=== PATIENT | male | born 1985 | race Caucasian/White ===

== ENCOUNTER 2018-03-30 07:10 | Inpatient (IN) | payer OTHER ==
[~2018-03-30] VITALS: Ht 172.7 cm; Wt 74.8 kg
[~2018-03-30 07:10] MED LIST changes: -LORazepam 2 MG/ML VIAL IM ONE; -MULT-1379 PO; -OLANZapine 10 MG VIAL IM ONLY ONE; -WATER STERILE 10 ML VIAL IM ONLY ONE; -diphenhydrAMINE 50 MG/ML VIAL IM ONE
[2018-03-30] MEDS ORDERED: MAG HYD/AL HYD/SIMETH 30ML UDC PO PRN (08:05)
[2018-03-30 14:30] VITALS: BP 100/65
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
[2018-03-31] MEDS ORDERED: MULTIVITAMINS TAB PO SCH (09:00)
[2018-03-31] MEDS ORDERED: NICOTINE INH SYSTEM 10 MG/INH INH PRN (11:20)
[2018-03-31] MEDS ORDERED: NICOTINE CARTRIDGE 1 EA PO PRN (11:20)
[2018-03-31] MEDS ORDERED: MULT-1379 PO (11:45)
[2018-03-31 14:55] VITALS: BP 123/87
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
== END 2018-03-31 15:45 | disposition home or self-care (01) | DRG 881 ==
LOC: BHS 07:10
PROVIDERS: ADMIT Psychiatry & Neurology Psychiatry; ATTEND Psychiatry & Neurology Psychiatry
DX: F43.21 Adjustment disorder with depressed mood (principal); R45.851 Suicidal ideations; F12.90 Cannabis use, unspecified, uncomplicated; Z62.810 Personal history of physical and sexual abuse in childhood; Z63.0 Problems in relationship with spouse or partner

== ENCOUNTER → 2018-03-30 | Emergency (ER) | payer OTHER ==
[~2018-03-30] MED LIST: ALBU8.5H IH; DULO30CA35 PO; LORazepam 2 MG/ML VIAL IM ONE; MULT-1379 PO; OLANZapine 10 MG VIAL IM ONLY ONE; WATER STERILE 10 ML VIAL IM ONLY ONE; diphenhydrAMINE 50 MG/ML VIAL IM ONE
--- NOTE | 2018-03-30 04:11 | ER Report ---
History and Physical Time Seen By : 04:11 HPI/ROS CHIEF COMPLAINT: emergency fpc HISTORY OF PRESENT ILLNESS: This is a 32 year old male. He was brought to the ER by the [place] [employer]. He was brought in because of suicidal statements. He and girlfriend got into an argument tonight. He left and sent text messages stating that he was going to kill himself. The police were called and they talked to him. He had been drinking a little bit and said that he was just mad and talking. They were able to leave at that time and felt he was safe , but they were called back to the residence later. He was banging on the door and said that if they did not come out that they would see him at his and he would kill himself. Based on the combination of events, they brought him in to the ER under emergency fpc for suicidal ideation and statements. He is adamant at this time that he is not suicidal. He says he has to work in the morning and will need to make money to support his 4 kids. He says that there is not enough Xanax available for him to take from his prescription to kill himself. He says he has a prescription for nightly Xanax. He denies any other problems. 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 He denies shortness of breath or chest pain. He has no abdominal pain or vomiting. He is requesting a cigarette, but does not want a nicotine patch because they make him sick. He says he has had several drinks tonight. He smokes marijuana, but denies other drugs. Allergies: Coded Allergies: No Known Drug Allergies (Unverified , 03/30/18) Home Meds Reported Medications Multivits,Th W-Fe,Other Min (THERA-M) 1 Each Tablet, 1 EACH PO QDAY 03/31/18 Albuterol Sulfate 90 Mcg/Act (PROAIR HFA 90 MCG/ACT) 8.5 Gm Hfa.aer.ad, 2 PUFF IH Q4H Y for SHORTNESS OF BREATH, INHALER 03/30/18 Duloxetine Hcl (CYMBALTA) 30 Mg Capsule., 90 MG PO QDAY, #5 CAP 03/30/18 Reviewed Nurses Notes: Yes Constitutional Vital Sign - Last 24 Hours 03/30/18 03/30/18 03/30/18 03/30/18 04:05 04:05 04:07 05:10 Temp 98.0 Pulse 87 87 101 104 Resp 16 B/P (MAP) 138/103 Pulse Ox 97 97 93 94 O2 Delivery Room Air 03/30/18 03/30/18 03/30/18 03/30/18 05:15 05:45 05:50 05:55 Pulse 98 96 98 B/P (MAP) 111/93 (99) Pulse Ox 95 94 92 03/30/18 03/30/18 03/30/18 03/30/18 06:10 06:25 06:30 06:45 Pulse 95 96 87 94 Pulse Ox 92 92 93 03/30/18 03/30/18 07:00 07:15 Pulse 90 89 Pulse Ox 92 91 Physical Exam General Appearance: The patient is alert, has no immediate need for airway protection and no current signs of toxicity. Eyes: Pupils equal and round, reactive to light, extraocular movements are intact, has some scleral injection. ENT: Normal oral mucosa. Moist mucous membranes. Tympanic membranes are normal. Neck: Neck is supple and non tender. Respiratory: Chest is non tender, lungs are clear to auscultation. Cardiac: regular rate and rhythm, normal cap refill and pulses in the wrists and ankles/feet. Gastrointestinal: Abdomen is soft and non tender, no masses, bowel sounds normal. Musculoskeletal: Extremities have full range of motion. He has some tenderness in both calf muscles, the left a little worse than the right. Skin: Has some abrasions on legs and arms, superficial only. DIFFERENTIAL DIAGNOSIS: After history and physical exam differential diagnosis was considered for suicidal ideation, intoxication with alcohol and possibly marijuana. Medical Decision Making Data Points Result Diagram: 03/30/18 0501 03/30/18 0501 Laboratory Hematology Test 03/30/18 05:01 03/30/18 05:50 Red Blood Count 5.02 M/uL (4.00-5.60) Mean Corpuscular Volume 90.5 fL (80.0-96.0) Mean Corpuscular Hemoglobin 32.2 pg (26.0-33.0) Mean Corpuscular Hemoglobin Concent 35.6 g/dL (32.0-36.0) Red Cell Distribution Width 15.9 % (11.5-14.5) Mean Platelet Volume 8.7 fL (7.2-11.1) Neutrophils (%) (Auto) 69.9 % (39.4-72.5) Lymphocytes (%) (Auto) 14.8 % (17.6-49.6) Monocytes (%) (Auto) 6.3 % (4.1-12.4) Eosinophils (%) (Auto) 8.7 % (0.4-6.7) Basophils (%) (Auto) 0.3 % (0.3-1.4) Nucleated RBC Relative Count (auto) 0.0 /100WBC Neutrophils # (Auto) 5.2 K/uL (2.0-7.4) Lymphocytes # (Auto) 1.1 K/uL (1.3-3.6) Monocytes # (Auto) 0.5 K/uL (0.3-1.0) Eosinophils # (Auto) 0.7 K/uL (0.0-0.5) Basophils # (Auto) 0.0 K/uL (0.0-0.1) Nucleated RBC Absolute Count (auto) 0.00 K/uL Sodium Level 138 mmol/L (137-145) Potassium Level 3.4 mmol/L (3.5-5.0) Chloride Level 106 mmol/L (98-107) Carbon Dioxide Level 20 mmol/L (22-30) Blood Urea Nitrogen 7 mg/dl (9-21) Creatinine 0.80 mg/dl (0.66-1.25) Glomerular Filtration Rate Calc > 60.0 Random Glucose 144 mg/dl (75-110) Calcium Level 9.1 mg/dl (8.4-10.2) Magnesium Level 2.0 mg/dl (1.7-2.2) Total Bilirubin 0.5 mg/dl (0.2-1.3) Aspartate Amino Transf (AST/SGOT) 24 U/L (0-35) Alanine Aminotransferase (ALT/SGPT) 30 U/L (0-56) Alkaline Phosphatase 69 U/L (0-126) Total Protein 7.5 g/dl (6.3-8.2) Albumin 4.5 g/dl (3.5-5.0) Thyroid Stimulating Hormone (TSH) 3.45 uIU/ml (0.46-4.68) Salicylates Level < 10 mg/L Salicylate Last Dose Date unk Acetaminophen Level < 10 ug/ml Serum Alcohol 10 mg/dl Urine Color Straw Urine Clarity Clear Urine pH 6.0 pH (4.8-9.5) Urine Specific [place] 1.002 Urine Protein Negative mg/dL (NEGATIVE) Urine Glucose (UA) Negative mg/dL (NEGATIVE) Urine Ketones Negative mg/dL (NEGATIVE) Urine Blood Negative (NEGATIVE) Urine Nitrite Negative (NEGATIVE) Urine Bilirubin Negative (NEGATIVE) Urine Urobilinogen Negative mg/dL (0.2-1.9) Urine Leukocyte Esterase Negative (NEGATIVE) Urine RBC None /HPF (0-2/HPF) Urine WBC <1 /HPF (0-5/HPF) Urine Squamous Epithelial Cells None /LPF (NONE-FEW) Urine Bacteria Negative /HPF (NONE-FEW) Urine Mucus None /HPF (NONE-FEW) Urine Opiates Screen Negative Urine Barbiturates Screen Negative Ur Tricyclic Antidepressants Screen Negative Urine Phencyclidine Screen Negative Urine Amphetamines Screen Negative Urine Benzodiazepines Screen Positive Urine Cocaine Screen Negative Urine Cannabinoids Screen Positive Chemistry Test 03/30/18 05:01 03/30/18 05:50 White Blood Count 7.4 k/uL (4.5-11.0) Red Blood Count 5.02 M/uL (4.00-5.60) Hemoglobin 16.2 g/dL (14.0-18.0) Hematocrit 45.4 % (42.0-52.0) Mean Corpuscular Volume 90.5 fL (80.0-96.0) Mean Corpuscular Hemoglobin 32.2 pg (26.0-33.0) Mean Corpuscular Hemoglobin Concent 35.6 g/dL (32.0-36.0) Red Cell Distribution Width 15.9 % (11.5-14.5) Platelet Count 296 K/uL (150-450) Mean Platelet Volume 8.7 fL (7.2-11.1) Neutrophils (%) (Auto) 69.9 % (39.4-72.5) Lymphocytes (%) (Auto) 14.8 % (17.6-49.6) Monocytes (%) (Auto) 6.3 % (4.1-12.4) Eosinophils (%) (Auto) 8.7 % (0.4-6.7) Basophils (%) (Auto) 0.3 % (0.3-1.4) Nucleated RBC Relative Count (auto) 0.0 /100WBC Neutrophils # (Auto) 5.2 K/uL (2.0-7.4) Lymphocytes # (Auto) 1.1 K/uL (1.3-3.6) Monocytes # (Auto) 0.5 K/uL (0.3-1.0) Eosinophils # (Auto) 0.7 K/uL (0.0-0.5) Basophils # (Auto) 0.0 K/uL (0.0-0.1) Nucleated RBC Absolute Count (auto) 0.00 K/uL Glomerular Filtration Rate Calc > 60.0 Calcium Level 9.1 mg/dl (8.4-10.2) Magnesium Level 2.0 mg/dl (1.7-2.2) Total Bilirubin 0.5 mg/dl (0.2-1.3) Aspartate Amino Transf (AST/SGOT) 24 U/L (0-35) Alanine Aminotransferase (ALT/SGPT) 30 U/L (0-56) Alkaline Phosphatase 69 U/L (0-126) Total Protein 7.5 g/dl (6.3-8.2) Albumin 4.5 g/dl (3.5-5.0) Thyroid Stimulating Hormone (TSH) 3.45 uIU/ml (0.46-4.68) Salicylates Level < 10 mg/L Salicylate Last Dose Date unk Acetaminophen Level < 10 ug/ml Serum Alcohol 10 mg/dl Urine Color Straw Urine Clarity Clear Urine pH 6.0 pH (4.8-9.5) Urine Specific [place] 1.002 Urine Protein Negative mg/dL (NEGATIVE) Urine Glucose (UA) Negative mg/dL (NEGATIVE) Urine Ketones Negative mg/dL (NEGATIVE) Urine Blood Negative (NEGATIVE) Urine Nitrite Negative (NEGATIVE) Urine Bilirubin Negative (NEGATIVE) Urine Urobilinogen Negative mg/dL (0.2-1.9) Urine Leukocyte Esterase Negative (NEGATIVE) Urine RBC None /HPF (0-2/HPF) Urine WBC <1 /HPF (0-5/HPF) Urine Squamous Epithelial Cells None /LPF (NONE-FEW) Urine Bacteria Negative /HPF (NONE-FEW) Urine Mucus None /HPF (NONE-FEW) Urine Opiates Screen Negative Urine Barbiturates Screen Negative Ur Tricyclic Antidepressants Screen Negative Urine Phencyclidine Screen Negative Urine Amphetamines Screen Negative Urine Benzodiazepines Screen Positive Urine Cocaine Screen Negative Urine Cannabinoids Screen Positive Toxicology Test 03/30/18 05:01 03/30/18 05:50 Salicylates Level < 10 mg/L Salicylate Last Dose Date unk Acetaminophen Level < 10 ug/ml Serum Alcohol 10 mg/dl Urine Opiates Screen Negative Urine Barbiturates Screen Negative Ur Tricyclic Antidepressants Screen Negative Urine Phencyclidine Screen Negative Urine Amphetamines Screen Negative Urine Benzodiazepines Screen Positive Urine Cocaine Screen Negative Urine Cannabinoids Screen Positive Urinalysis Test 03/30/18 05:50 Urine Color Straw Urine Clarity Clear Urine pH 6.0 pH (4.8-9.5) Urine Specific [place] 1.002 Urine Protein Negative mg/dL (NEGATIVE) Urine Glucose (UA) Negative mg/dL (NEGATIVE) Urine Ketones Negative mg/dL (NEGATIVE) Urine Blood Negative (NEGATIVE) Urine Nitrite Negative (NEGATIVE) Urine Bilirubin Negative (NEGATIVE) Urine Urobilinogen Negative mg/dL (0.2-1.9) Urine Leukocyte Esterase Negative (NEGATIVE) Urine RBC None /HPF (0-2/HPF) Urine WBC <1 /HPF (0-5/HPF) Urine Squamous Epithelial Cells None /LPF (NONE-FEW) Urine Bacteria Negative /HPF (NONE-FEW) Urine Mucus None /HPF (NONE-FEW) ED Course/Re-evaluation ED Course Overall, the patient has been cooperative with me, but you can tell he is agitated at the process. He is begging me to let him go home so he does not miss work or lose his job. Based on the situation, I cannot do that. We talked about that and he asked me if he could get some Xanax or something to keep him calm. He feels like he might get upset enough that he could lose control and cause problems. I talked to him about this and suggested using some sedative injections that would help keep him calm and perhaps put him to sleep so that he would be calm and keep himself and staff here safe from him getting out of control. He felt like that would be for the best so we went ahead and used Ativan 2mg IM, Benadryl 50mg IM and Zyprexa 10mg IM. Summit this course would be the best for safety and avoiding problems this morning. We explained the medications and the patient let the nurses give him the injections. He did not want blood drawn until he was more calm or asleep as he is feeling like he might freak out with these things. Decision to Disposition Date: Mar 30, 2018 Decision to Disposition Time: 04:52 Depart Departure Latest Vital Signs Vital Signs Date Time Temp Pulse Resp B/P (MAP) Pulse Ox O2 Delivery O2 Flow Rate FiO2 03/30/18 07:15 89 91 03/30/18 05:45 111/93 (99) 03/30/18 04:07 98.0 16 Room Air Impression: Primary Impression: Suicidal ideation Condition: Condition Unchanged Disposition: XFER TO [facility] PILLO STOLL MD Mar 30, 2018 04:11
--- NOTE | 2018-03-30 04:49 | BHS - Psychiatric Evaluation ---
ER - Title 25 MHE Evaluation Title 25 Evaluation Patient Detained By: Law Enforcement Referral Source: Law enforcement and patient information. Family information via [employer] Date Patient Detained: Mar 30, 2018 Time Patient Detained: 04:00 Date Long-Term Expires: Apr 04, 2018 Time Long-Term Expires: 04:00 Legal Status: Police Hold: No Legal Status: Residence: [facility] Assessment Data Provided By: Patient, Law Enforcement HPI/ROS: CHIEF COMPLAINT: emergency nursing home HISTORY OF PRESENT ILLNESS: This is a 32 year old male. He was brought to the ER by the [place] [employer]. He was brought in because of suicidal statements. He and girlfriend got into an argument tonight. He left and sent text messages stating that he was going to kill himself. The police were called and they talked to him. He had been drinking a little bit and said that he was just mad and talking. They were able to leave at that time and felt he was safe, but they were called back to the residence later. He was banging on the door and said that if they did not come out that they would see him at his and he would kill himself. Based on the combination of events, they brought him in to the ER under emergency nursing home for suicidal ideation and statements. He is adamant at this time that he is not suicidal. He says he has to work in the morning and will need to make money to support his 4 kids. He says that there is not enough Xanax available for him to take from his prescription to kill himself. He says he has a prescription for nightly Xanax. He denies any other problems. 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 He denies shortness of breath or chest pain. He has no abdominal pain or vomiting. He is requesting a cigarette, but does not want a nicotine patch because they make him sick. He says he has had several drinks tonight. He smokes marijuana, but denies other drugs. Admit due to SI or Attempt: No Suicide Plan: No Plan Alcohol or Drugs Involved: Yes Current Intoxication Info: alcohol and marijuana Is Patient Info Reliable: No Is Collateral Info Reliable: Yes Current Home Psych Meds: Has a prescription for Xanax, for anxiety Mental Status Exam General Appearance: Unkept Speech: Slurred, Rambling Mood: Dysthmic/Depressed Affect: Anxious, Agitated (Swings between the two) Thought Process: Goal Directed Thought Content: No Suicidal Ideation, No Homicidal Ideation, No Auditory Halllucinations, No Visual Hallucinations Sensorium: Other (appears intoxicated) Cognition: Alert & Oriented-Person, Alert & Oriented-Place, Alert & Oriented- Time, Eyxev-Ghypozvc-Jwdwwbyve Memory: Other (normal) Insight Judgment: Poor Hallucinations: Denies Delusions: Denies Current Risk & History Current Dangerous Risk Assessm: Agitation this Encounter Past Dangerous Risk Assessm: Other (No known past dangerous risk behaviors) Previous Suicide Attempt: No Previous Attempt Previous Psychiatric Illness: Yes Previous Diagnosis/Treatment: Anxiety as noted above. Previous Psychiatric Treatment: No Previous Treatment Description None known or admitted to Risk Assessment & Disposition Evaluated Risk Assessment: The patient has had two episodes tonight with the police coming a second time and again threatening suicide. Based on this I am upholding the nursing home. The patient has been cooperative and calm for the most part, but is getting agitated. He is requesting medication to help calm him because he feels like he might get too riled up. To protect the patient from this as well as protect the staff, I offered to provide medications to sedate him this morning. I explained that we would give these as IM injections. He feels like this will be for the best so that he does not cause a problem and keep everyone safe. Impression: Primary Impression: Suicidal ideation Meets Mental Illness Req.: Yes Meets Dangerousness Req.: Yes Emergency Long-Term to be: Upheld Date of Decision: Mar 30, 2018 Time of Decision: 04:48 Patient is Medically Stable at: Yes Disposition: PILLO SANTIAGO MD Mar 30, 2018 04:49
[2018-03-30 05:13] LABS: PLATELET COUNT, AUTOMATED 296 K/uL (150-450)
[2018-03-30 05:45] VITALS: BP 111/93
== END ==
LOC: ER 04:12
DX: R45.851 Suicidal ideations (principal)
CPT/HCPCS: 36415; 80305; 80320; 80329; 81001; 83735; 84443; 85025; 96372; 99284; A4216; J1200; J2060; J3490; 82040; 82247; 82310; 82374; 82435; 82565; 82947; 84075; 84132; 84155; 84295; 84450; 84460; 84520

== ENCOUNTER 2018-04-05 18:45 | Emergency (ER) | payer MEDICAID, OTHER ==
[~2018-04-05 18:45] MED LIST changes: +MULT-1379 PO
--- NOTE | 2018-04-05 18:53 | ER Report ---
History and Physical Time Seen By MD: 18:52 HPI/ROS CHIEF COMPLAINT: Right lower extremity pain, swelling after falling HISTORY OF PRESENT ILLNESS: Patient is a 32-year-old male here with complaints of right lower extremity pain, ecchymosis after falling down steps several days ago. Patient reports that he has been taking ibuprofen excessively and has noticed increased bruising of the right lower extremity with increased pain. He also has mild numbness and paresthesias just distal to his right knee in the posterior aspect. Patient is afebrile, denies chest pain, shortness breath, nausea, vomiting, fevers or chills. He is neurovascularly intact in the distal extremity. REVIEW OF SYSTEMS: Constitutional: No fever, no chills. Eyes: No discharge. ENT: No sore throat. Cardiovascular: No chest pain, no palpitations. Respiratory: No cough, no shortness of breath. Gastrointestinal: No abdominal pain, no vomiting. Genitourinary: No hematuria. Musculoskeletal: + RLE pain from knee to foot with ecchymosis Skin: + ecchymosis of the RLE Neurological: No headache. Allergies: Coded Allergies: No Known Drug Allergies (Unverified , 03/30/18) Home Meds Active Scripts Tramadol Hcl (TRAMADOL HCL) 50 Mg Tablet, 50 MG PO Q6H Y for PAIN, #12 TAB 0 Refills Prov:ALEKS BOX DO 04/05/18 Reported Medications Multivits,Th W-Fe,Other Min (THERA-M) 1 Each Tablet, 1 EACH PO QDAY 03/31/18 Albuterol Sulfate 90 Mcg/Act (PROAIR HFA 90 MCG/ACT) 8.5 Gm Hfa.aer.ad, 2 PUFF IH Q4H Y for SHORTNESS OF BREATH, INHALER 03/30/18 Duloxetine Hcl (CYMBALTA) 30 Mg Capsule.dr, 90 MG PO QDAY, #5 CAP 03/30/18 Hx Smoking: Yes Smoking Status: Current: Every Day Smoker, Heavy Tobacco Smoker Hx Alcohol Use: Yes Constitutional Vital Sign - Last 24 Hours 04/05/18 04/05/18 04/05/18 04/05/18 18:48 18:52 18:55 19:00 Temp 99.3 Pulse 85 81 Resp 16 B/P (MAP) 122/86 (98) 122/86 113/83 (93) 114/95 (101) Pulse Ox 95 94 O2 Delivery Room Air 04/05/18 04/05/18 19:15 19:30 Pulse 82 72 B/P (MAP) 118/76 (90) Pulse Ox 96 93 Physical Exam General Appearance: The patient is alert, has no immediate need for airway protection and no signs of toxicity. Mild distress secondary to pain Neurological: Neurovascular exam is intact in the distal extremity Skin: Ecchymosis of the right lower extremity from the knee to the foot Musculoskeletal: Neck is supple non tender. Right lower extremity tender to palpation from the knee to the foot. DIFFERENTIAL DIAGNOSIS: After history and physical exam differential diagnosis was considered for fracture, contusion, abrasion, sprain Medical Decision Making EKG/Imaging Imaging Location: [facility] Patient: Jackson Houston : 1985 Visit/Account:[id number] Date of : 04/05/2018 Technique: ANKLE 2 VIEW RIGHT HISTORY: fall Comparison studies: None FINDINGS: There is no acute fracture. The ankle mortise is maintained. Soft tissue swelling overlies the ankle. IMPRESSION: 1. No acute osseous process. Location: [facility] Patient: Jackson Houston : 1985 Visit/Account:[id number] Date of Sev: 04/05/2018 Technique: FOOT 2 VIEW RIGHT HISTORY: fall Comparison studies: None FINDINGS: A a linear lucency is noted at the base of the right fifth metatarsal ; this does not appear to extend to the cortex. The alignment of the right foot is maintained. No significant soft tissue swelling. IMPRESSION: 1. Linear lucency at the base of the right fifth metatarsal which does not extend to the cortex and is likely projectional; however, oblique radiographs would further assess. Location: [facility] Patient: Jackson Houston : 1985 Visit/Account:[id number] Date of : 04/05/2018 Technique: KNEE 3 VIEW RIGHT HISTORY: fall Comparison studies: None FINDINGS: There is no acute fracture. The alignment of the right knee is maintained. No knee joint effusion. IMPRESSION: 1. No acute osseous process. Location: [facility] Patient: Jackson Houston : 1985 Visit/Account:[id number] Date of Sevice: 04/05/2018 Technique: TIBIA FIBULA RIGHT HISTORY: fall Comparison studies: None FINDINGS: There is no acute fracture. The alignment of the right tibia and fibula are maintained. No radiodense foreign body. IMPRESSION: 1. No acute osseous process. ED Course/Re-evaluation ED Course Patient is a 32-year-old male here status post fall several days ago here with complaints of right lower extremity pain, swelling, ecchymosis from the knee to the foot. On physical exam it appears that the patient has developed a hematoma of the posterior right leg distal to the knee. He reports taking excessive amounts of Advil for analgesia without significant relief of symptoms. X-rays of the knee, tib-fib, ankle and foot showed no acute fractures. The extremity was wrapped in Alexey wraps for comfort and since he had a hematoma present. Patient was given 2 days off work for rest and recovery. He was given take home tramadol and a prescription for backup tramadol for pain control and advised not to take Advil as this may worsen his symptoms and bleeding. Patient was stable for discharge and able to ambulate without issue. Decision to Disposition Date: Apr 05, 2018 Decision to Disposition Time: 19:59 Depart Departure Latest Vital Signs Vital Signs Date Time Temp Pulse Resp B/P (MAP) Pulse Ox O2 Delivery O2 Flow Rate FiO2 04/05/18 19:30 72 118/76 (90) 93 04/05/18 18:52 99.3 16 Room Air Impression: Primary Impression: Extremity pain Additional Impressions: Fall Contusion Condition: Condition Unchanged Disposition: HOME OR SELF-CARE New Scripts Tramadol Hcl (TRAMADOL HCL) 50 Mg Tablet 50 MG PO Q6H Y for PAIN, #12 TAB 0 Refills Prov: ALEKS BOX DO 04/05/18 Departure Forms: ER Transition Record, Medications Reconciliation, Off Work/ School Form, School or Work Release?: Work Number of days to be released: 2 Patient Portal Information Patient Instructions: Hematoma (ED) Additional Instructions: Please read. Leg in Alexey bandages for comfort. Rest, elevate, ice and take pain medications as needed for relief. Please follow-up with your family doctor in the next 3 days for follow-up care. Problem Qualifiers ALEKS BOX DO Apr 05, 2018 18:53
[2018-04-05 19:30] VITALS: BP 118/76
--- NOTE | 2018-04-05 19:42 | RADIOLOGY IMAGING REPORT ---
FACILITY: [facility] PATIENT NAME: Jackson Houston : 1985 MR: [id number] V: [id number] EXAM DATE: ORDERING PHYSICIAN: ALEKS BOX TECHNOLOGIST: Location: [facility] Patient: Jackson Houston : 1985 Visit/Account:[id number] Date of Sevice: 04/05/2018 Technique: KNEE 3 VIEW RIGHT HISTORY: fall Comparison studies: None FINDINGS: There is no acute fracture. The alignment of the right knee is maintained. No knee joint ef fusion. IMPRESSION: 1. No acute osseous process. Report Dictated By: Eliel Barahona DO at 04/05/2018 7:31 PM Report E-Signed By: Eliel Barahona DO at 04/05/2018 7:38 PM WSN:[id number]
--- NOTE | 2018-04-05 19:43 | RADIOLOGY IMAGING REPORT ---
FACILITY: [facility] PATIENT NAME: Jackson Houston : 1985 MR: [id number] V: [id number] EXAM DATE: ORDERING PHYSICIAN: ALEKS BOX TECHNOLOGIST: Location: [facility] Patient: Jackson Houston : 1985 Visit/Account:[id number] Date of Sevice: 04/05/2018 Technique: TIBIA FIBULA RIGHT HISTORY: fall Comparison studies: None FINDINGS: There is no acute fracture. The alignment of the right tibia and fibula are maintained. No radiodense foreign body. IMPRESSION: 1. No acute osseous process. Report Dictated By: Eliel Barahona DO at 04/05/2018 7:38 PM Report E-Signed By: Eliel Barahona DO at 04/05/2018 7:40 PM WSN:[id number]
--- NOTE | 2018-04-05 19:46 | RADIOLOGY IMAGING REPORT ---
FACILITY: [facility] PATIENT NAME: Jackson Houston : 1985 MR: [id number] V: [id number] EXAM DATE: ORDERING PHYSICIAN: ALEKS BOX TECHNOLOGIST: Location: [facility] Patient: Jackson Houston : 1985 Visit/Account:[id number] Date of Sevice: 04/05/2018 Technique: ANKLE 2 VIEW RIGHT HISTORY: fall Comparison studies: None FINDINGS: There is no acute fracture. The ankle mortise is maintained. Soft tissue swelling overlies the ankle. IMPRESSION: 1. No acute osseous process. Report Dictated By: Eliel Barahona DO at 04/05/2018 7:40 PM Report E-Signed By: Eliel Barahona DO at 04/05/2018 7:42 PM WSN:[id number]
--- NOTE | 2018-04-05 19:54 | RADIOLOGY IMAGING REPORT ---
FACILITY: [facility] PATIENT NAME: Jackson Houston : 1985 MR: [id number] V: [id number] EXAM DATE: ORDERING PHYSICIAN: ALEKS BOX TECHNOLOGIST: Location: [facility] Patient: Jackson Houston : 1985 Visit/Account:[id number] Date of Sevice: 04/05/2018 Technique: FOOT 2 VIEW RIGHT HISTORY: fall Comparison studies: None FINDINGS: A a linear lucency is noted at the base of the right fifth metatarsal; this does not appear to extend to the cortex. The alignment of the right foot is maintained. No significant soft tissue s welling. IMPRESSION: 1. Linear lucency at the base of the right fifth metatarsal which does not extend to the cortex and is likely projectional; however, oblique radiographs would further assess. Report Dictated By: Eliel Barahona DO at 04/05/2018 7:45 PM Report E-Signed By: Eliel Barahona DO at 04/05/2018 7:51 PM WSN:[id number]
[2018-04-05] MEDS ORDERED: TRAM-420 PO (19:57)
[2018-04-05] MEDS ORDERED: traMADol 50 MG TAB TH 2 TAB/BOTTLE PO ONE (20:00)
== END 2018-04-05 20:15 | disposition home or self-care (01) ==
LOC: ER 19:04
DX: S80.11XA Contusion of right lower leg, initial encounter (principal); M79.661 Pain in right lower leg; F17.200 Nicotine dependence, unspecified, uncomplicated; W10.9XXA Fall (on) (from) unspecified stairs and steps, initial encounter; Z79.899 Other long term (current) drug therapy
CPT/HCPCS: 73562; 73590; 73600; 73620; 99284; C9399

== ENCOUNTER 2018-04-11 22:48 | Emergency (ER) | payer MEDICAID ==
[~2018-04-11 22:48] MED LIST changes: +TRAM-420 PO
[2018-04-11 23:00] VITALS: BP 123/90
--- NOTE | 2018-04-11 23:03 | ER Report ---
History and Physical Time Seen By MD: 23:03 HPI/ROS CHIEF COMPLAINT: Hematoma pain,? Infection HISTORY OF PRESENT ILLNESS: 32-year-old male presents ambulatory to the ER complaining of increasing pain and swelling in his right upper lateral calf muscle. Patient was seen here a week or so ago after falling down some stairs. He has a large hematoma in the upper aspect of his calf muscle. There is an open wound there from an abrasion. It appears he's been picking at it. It is somewhat erythematous. His is concerned it's getting infected. He notes 6 /10 pain aggravated by palpation and movement. He notes no purulent drainage. He's had no systemic fever, chills or body aches. There is old appearing ecchymosis extending down his leg. Allergies: Coded Allergies: No Known Drug Allergies (Unverified , 03/30/18) Home Meds Active Scripts Cephalexin Monohydrate (CEPHALEXIN) 500 Mg Cap, 500 MG PO TID, #30 CAP TAKE 1 CAPSULE BY MOUTH tid Prov:MARCELLA CASTELLANOS DO 04/11/18 Reported Medications Multivits,Th W-Fe,Other Min (THERA-M) 1 Each Tablet, 1 EACH PO QDAY 03/31/18 Albuterol Sulfate 90 Mcg/Act (PROAIR HFA 90 MCG/ACT) 8.5 Gm Hfa.aer.ad, 2 PUFF IH Q4H Y for SHORTNESS OF BREATH, INHALER 03/30/18 Duloxetine Hcl (CYMBALTA) 30 Mg Capsule.dr, 60 MG PO QDAY, #5 CAP 03/30/18 Discontinued Scripts Tramadol Hcl (TRAMADOL HCL) 50 Mg Tablet, 50 MG PO Q6H Y for PAIN, #12 TAB 0 Refills Prov:ALEKS BOX DO 04/05/18 Reviewed Nurses Notes: Yes Old Medical Records Reviewed: Yes Hx Smoking: Yes Smoking Status: Current: Every Day Smoker, Heavy Tobacco Smoker Hx Substance Use Disorder: No Hx Alcohol Use: Yes Constitutional Vital Sign - Last 24 Hours 04/11/18 23:00 Temp 99.3 Pulse 81 Resp 16 B/P (MAP) 123/90 Pulse Ox 95 O2 Delivery Room Air Physical Exam General appearance: Alert no distress. Respiratory: Chest is non tender, lungs are clear to auscultation. Cardiac: Regular rate and rhythm Extremities: Examination of the right lower extremity reveals a large hematoma in the upper lateral aspect of the calf muscle. There is a approximately 8 mm wound with some surrounding erythema. Is not warm to touch. It is not fluctuant. The hematoma extends approximately 10 cm in diameter. There is no calf tenderness. There is no Homans sign. The foot is neurovascularly intact. DIFFERENTIAL DIAGNOSIS: After history and physical exam differential diagnosis was considered for hematoma, abscess, cellulitis, open wound, DVT, contusion, knee sprain Medical Decision Making ED Course/Re-evaluation ED Course Patient was minute to an examination room. H&P was done. The dental diagnoses was considered. Patient with some suggestions of infection. He'll be covered with Keflex. He is advised to treat a hematoma with heat to help resorption. He is advised to wear compressive wrap. Patient's advised to follow-up with primary care if unimproved in 3-5 days. Decision to Disposition Date: Apr 11, 2018 Decision to Disposition Time: 23:13 Depart Departure Latest Vital Signs Vital Signs Date Time Temp Pulse Resp B/P (MAP) Pulse Ox O2 Delivery O2 Flow Rate FiO2 04/11/18 23:00 99.3 81 16 123/90 95 Room Air Impression: Primary Impression: Hematoma of right lower extremity Additional Impressions: Open wound of right lower leg Cellulitis of right leg Condition: Improved Disposition: HOME OR SELF-CARE Referrals: JOANIE ALONSO MD, FARRUKH MD New Scripts Cephalexin Monohydrate (CEPHALEXIN) 500 Mg Cap 500 MG PO TID, #30 CAP TAKE 1 CAPSULE BY MOUTH tid Prov: MARCELLA CASTELLANOS DO 04/11/18 Patient Instructions: Cellulitis (ED), Hematoma (ED) Additional Instructions: Apply a heating pad or warm compresses to the affected area Gently massage the area Wear compressive Alexey wrap in the affected area Gently cleanse the wound once a day and apply a large Band-Aid and antibiotic ointment Follow-up with your primary care if unimproved in 3-5 days Problem Qualifiers Primary Impression: Hematoma of right lower extremity Encounter type: initial encounter Qualified Codes: S80.11XA - Contusion of right lower leg, initial encounter Additional Impressions: Open wound of right lower leg Encounter type: initial encounter Qualified Codes: S81.801A - Unspecified open wound, right lower leg, initial encounter MARCELLA CASTELLANOS DO Apr 11, 2018 23:03
[2018-04-11] MEDS ORDERED: CEPH500C24 PO (23:15)
[2018-04-11] MEDS ORDERED: CEPHALEXIN MONO 500 MG CAP PO ONE (23:20)
== END 2018-04-11 23:27 | disposition home or self-care (01) ==
LOC: ER 23:09
DX: S80.11XA Contusion of right lower leg, initial encounter (principal); S81.801A Unspecified open wound, right lower leg, initial encounter; L03.115 Cellulitis of right lower limb
CPT/HCPCS: 99283

== ENCOUNTER 2018-04-25 00:02 | Emergency (ER) | payer MEDICAID ==
[~2018-04-25 00:02] MED LIST changes: +CEPH500C24 PO
--- NOTE | 2018-04-25 00:10 | ER Report ---
History and Physical Time Seen By MD: 00:10 Hx. of Stated Complaint: HEMATOMA ON PATIENTS RIGHT CALF "EXPLODED" TONIGHT ABOUT 1/2HOUR AGO. PATIENT STATES FEELING A LIGHT HEADED AND NAUSEATED. 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 HPI/ROS CHIEF COMPLAINT: leg bleeding HISTORY OF PRESENT ILLNESS: This is a 32 year old male. He has a history of a right upper calf traumatic hematoma from a fall a few weeks ago. Had been prescribed antibiotics about 10 days ago for cellulitis over abrasion in the same area. He did not get the antibiotics. He has been having increasing pain in the calf and tonight it suddenly ruptured, scattering blood, clots and foul smelling liquid. The area is still painful, but less painful now. No fevers or chills. Has some nausea, but no vomiting. Normal sensation in the leg. Hurts to move the calf and foot, but can do so without weakness. Feels a little lightheaded. Allergies: Coded Allergies: No Known Drug Allergies (Unverified , 03/30/18) Home Meds Active Scripts Oxycodone Hcl/Acetaminophen (PERCOCET 5-325 MG TABLET) 1 Each Tablet, 1 EACH PO Q4H PRN for PAIN, #12 TAB 0 Refills Prov:PILLO STOLL MD 04/25/18 Sulfamethoxazole/Trimet 800-160 Mg Tab (BACTRIM DS TABLET) 1 Each Tablet, 1 TAB PO Q12H, #20 TAB 0 Refills Prov:PILLO STOLL MD 04/25/18 Reported Medications Multivits,Th W-Fe,Other Min (THERA-M) 1 Each Tablet, 1 EACH PO QDAY 03/31/18 Albuterol Sulfate 90 Mcg/Act (PROAIR HFA 90 MCG/ACT) 8.5 Gm Hfa.aer.ad, 2 PUFF IH Q4H PRN for SHORTNESS OF BREATH, INHALER 03/30/18 Duloxetine Hcl (CYMBALTA) 30 Mg Capsule.dr, 60 MG PO QDAY, #5 CAP 03/30/18 Discontinued Scripts Cephalexin Monohydrate (CEPHALEXIN) 500 Mg Cap, 500 MG PO TID, #30 CAP TAKE 1 CAPSULE BY MOUTH tid Prov:MARCELLA CASTELLANOS DO 04/11/18 Reviewed Nurses Notes: Yes Hx Smoking: Yes Smoking Status: Current: Every Day Smoker, Heavy Tobacco Smoker Hx Substance Use Disorder: No Hx Alcohol Use: Yes Constitutional Vital Sign - Last 24 Hours 04/25/18 04/25/18 04/25/18 04/25/18 00:06 01:02 01:07 01:22 Temp 98.3 Pulse 76 71 63 72 Resp 20 B/P (MAP) 110/78 Pulse Ox 95 95 95 96 O2 Delivery Room Air 04/25/18 01:36 B/P (MAP) 99/73 (82) Physical Exam General Appearance: The patient is alert. Mild distress due to pain. Respiratory: Breathing easily. Clear to auscultation. Cardiac: Regular rate and rhythm. Normal capillary refill and pulses in the right leg. Musculoskeletal: Pain over the wound, normal motor function. Skin: Exit wound from the hematoma which appears to have been infected. Wound measures about 1cm in diameter. Probing with cotton tipped swab shows underlying cavity about 2cm deep and about 6cm in diameter. Painful. Some clotted blood coming out. No active bleeding. Appears to have had purulent material expelled and still a little in the cavity. DIFFERENTIAL DIAGNOSIS: After history and physical exam differential diagnosis was considered for traumatic hematoma that got infected and spontaneously drain ed tonight. Medical Decision Making Data Points Result Diagram: 04/25/18 00304/25/18 003 Laboratory Hematology Test 04/25/18 00:37 Red Blood Count 4.72 M/uL (4.00-5.60) Mean Corpuscular Volume 91.0 fL (80.0-96.0) Mean Corpuscular Hemoglobin 32.1 pg (26.0-33.0) Mean Corpuscular Hemoglobin Concent 35.3 g/dL (32.0-36.0) Red Cell Distribution Width 14.9 % (11.5-14.5) Mean Platelet Volume 8.4 fL (7.2-11.1) Neutrophils (%) (Auto) 61.7 % (39.4-72.5) Lymphocytes (%) (Auto) 28.3 % (17.6-49.6) Monocytes (%) (Auto) 6.7 % (4.1-12.4) Eosinophils (%) (Auto) 2.1 % (0.4-6.7) Basophils (%) (Auto) 1.2 % (0.3-1.4) Nucleated RBC Relative Count (auto) 0.1 /100WBC Neutrophils # (Auto) 6.2 K/uL (2.0-7.4) Lymphocytes # (Auto) 2.9 K/uL (1.3-3.6) Monocytes # (Auto) 0.7 K/uL (0.3-1.0) Eosinophils # (Auto) 0.2 K/uL (0.0-0.5) Basophils # (Auto) 0.1 K/uL (0.0-0.1) Nucleated RBC Absolute Count (auto) 0.01 K/uL Erythrocyte Sedimentation Rate 6 mm/HOUR (0-15) Sodium Level 137 mmol/L (137-145) Potassium Level 3.0 mmol/L (3.5-5.0) Chloride Level 101 mmol/L (98-107) Carbon Dioxide Level 24 mmol/L (22-30) Blood Urea Nitrogen 9 mg/dl (9-21) Creatinine 0.80 mg/dl (0.66-1.25) Glomerular Filtration Rate Calc > 60.0 Random Glucose 156 mg/dl (75-110) Calcium Level 8.4 mg/dl (8.4-10.2) Total Bilirubin 0.2 mg/dl (0.2-1.3) Aspartate Amino Transf (AST/SGOT) 19 U/L (0-35) Alanine Aminotransferase (ALT/SGPT) 29 U/L (0-56) Alkaline Phosphatase 64 U/L (0-126) C-Reactive Protein < 0.5 mg/dl (<1.0) Total Protein 6.7 g/dl (6.3-8.2) Albumin 3.9 g/dl (3.5-5.0) Chemistry Test 04/25/18 00:37 White Blood Count 10.1 k/uL (4.5-11.0) Red Blood Count 4.72 M/uL (4.00-5.60) Hemoglobin 15.1 g/dL (14.0-18.0) Hematocrit 42.9 % (42.0-52.0) Mean Corpuscular Volume 91.0 fL (80.0-96.0) Mean Corpuscular Hemoglobin 32.1 pg (26.0-33.0) Mean Corpuscular Hemoglobin Concent 35.3 g/dL (32.0-36.0) Red Cell Distribution Width 14.9 % (11.5-14.5) Platelet Count 365 K/uL (150-450) Mean Platelet Volume 8.4 fL (7.2-11.1) Neutrophils (%) (Auto) 61.7 % (39.4-72.5) Lymphocytes (%) (Auto) 28.3 % (17.6-49.6) Monocytes (%) (Auto) 6.7 % (4.1-12.4) Eosinophils (%) (Auto) 2.1 % (0.4-6.7) Basophils (%) (Auto) 1.2 % (0.3-1.4) Nucleated RBC Relative Count (auto) 0.1 /100WBC Neutrophils # (Auto) 6.2 K/uL (2.0-7.4) Lymphocytes # (Auto) 2.9 K/uL (1.3-3.6) Monocytes # (Auto) 0.7 K/uL (0.3-1.0) Eosinophils # (Auto) 0.2 K/uL (0.0-0.5) Basophils # (Auto) 0.1 K/uL (0.0-0.1) Nucleated RBC Absolute Count (auto) 0.01 K/uL Erythrocyte Sedimentation Rate 6 mm/HOUR (0-15) Glomerular Filtration Rate Calc > 60.0 Calcium Level 8.4 mg/dl (8.4-10.2) Total Bilirubin 0.2 mg/dl (0.2-1.3) Aspartate Amino Transf (AST/SGOT) 19 U/L (0-35) Alanine Aminotransferase (ALT/SGPT) 29 U/L (0-56) Alkaline Phosphatase 64 U/L (0-126) C-Reactive Protein < 0.5 mg/dl (<1.0) Total Protein 6.7 g/dl (6.3-8.2) Albumin 3.9 g/dl (3.5-5.0) ED Course/Re-evaluation ED Course Blood and wound cultures obtained. Labs unremarkable. Used topical numbing and then irrigated the wound with saline and Hibiclens. Started on Bactrim. Instructed to follow-up with General surgery for further wound care. Decision to Disposition Date: Apr 25, 2018 Decision to Disposition Time: 01:25 Depart Departure Latest Vital Signs Vital Signs Date Time Temp Pulse Resp B/P (MAP) Pulse Ox O2 Delivery O2 Flow Rate FiO2 04/25/18 01:36 99/73 (82) 04/25/18 01:22 72 96 04/25/18 00:06 98.3 20 Room Air Impression: Primary Impression: Traumatic hematoma of lower leg with infection Condition: Improved Disposition: HOME OR SELF-CARE New Scripts Oxycodone Hcl/Acetaminophen (PERCOCET 5-325 MG TABLET) 1 Each Tablet 1 EACH PO Q4H PRN for PAIN, #12 TAB 0 Refills Prov: PILLO STOLL MD 04/25/18 Sulfamethoxazole/Trimet 800-160 Mg Tab (BACTRIM DS TABLET) 1 Each Tablet 1 TAB PO Q12H, #20 TAB 0 Refills Prov: PILLO STOLL MD 04/25/18 Patient Instructions: Abscess Follow-up (ED) Additional Instructions: The hematoma of your lower leg had gotten infected and ruptured/drained tonight. We would like to have you call Dr. Aviles tomorrow to schedule a follow-up visit with them in a few days. Take the antibiotic Bactrim DS, twice a day for 10 days. No soaking the wound until you see Dr. Aviles, but you can remove the dressing, wash it briefly with soap and water and then redress the wound with some antibiotic ointment and gauze. Take Ibuprofen 200mg over the counter tablets, 4 tablets every 8 hours as needed for pain. Percocet 5/325, one every 4 hours as needed for severe pain. Keep an JOB wrap on the wound to help compress the wound. Problem Qualifiers Primary Impression: Traumatic hematoma of lower leg with infection Encounter type: subsequent encounter Laterality: right Qualified Codes: S80.11XD - Contusion of right lower leg, subsequent encounter; L08.9 - Local infection of the skin and subcutaneous tissue, unspecified PILLO STOLL MD Apr 25, 2018 00:10
[2018-04-25] MEDS ORDERED: LIDOCAINE 4% 15 GM TUBE TP ONE (00:25)
[2018-04-25 00:53] LABS: PLATELET COUNT, AUTOMATED 365 K/uL (150-450)
[2018-04-25] MEDS ORDERED: oxyCODONE/ACETAMIN 5/325MG TH 2 TAB/BOTTLE PO ONE (01:25)
[2018-04-25] MEDS ORDERED: TRIMETH/SULFA DS 160-800MG TAB PO ONE (01:25)
[2018-04-25] MEDS ORDERED: SULF-198 PO (01:28)
[2018-04-25] MEDS ORDERED: OXYC-865 PO (01:28)
[2018-04-25 01:36] VITALS: BP 99/73
== END 2018-04-25 01:40 | disposition home or self-care (01) ==
LOC: ER 00:13
DX: S80.11XD Contusion of right lower leg, subsequent encounter (principal); L08.9 Local infection of the skin and subcutaneous tissue, unspecified
CPT/HCPCS: 82040; 82247; 82310; 82374; 82435; 82565; 82947; 84075; 84132; 84155; 84295; 84450; 84460; 84520; 85025; 85651; 86140; 87040; 87070; 87073; 99283

== ENCOUNTER 2018-08-10 10:28 | Emergency (ER) | payer MEDICAID ==
[~2018-08-10 10:28] MED LIST changes: +OXYC-865 PO; +SULF-198 PO
[2018-08-10] MEDS ORDERED: ALBUTEROL/IPRATROPIUM 3 ML NEB ONE (10:36)
--- NOTE | 2018-08-10 10:43 | ER Report ---
History and Physical Time Seen By MD: 10:42 Hx. of Stated Complaint: ASTHMA EXACERBATION HPI/ROS CHIEF COMPLAINT: Cough, shortness breath, wheezing HISTORY OF PRESENT ILLNESS: Patient is a 33-year-old male here with wheezing, shortness of breath acute onset after brushing dust at work. Patient is a histo ry of asthma but ran out of his inhaler. Patient reports that he was unable to catch his breath prompting ED evaluation. Patient is afebrile, hemodynamically stable at time of evaluation. Patient was tachypneic at time of initial evaluation REVIEW OF SYSTEMS: Constitutional: No fever, no chills. Eyes: No discharge. ENT: No sore throat. Cardiovascular: No chest pain, no palpitations. Respiratory: No cough, + shortness of breath. Musculoskeletal: No back pain. Skin: No rashes. Neurological: No headache. Allergies: Coded Allergies: No Known Drug Allergies (Unverified , 08/10/18) Home Meds Active Scripts Oxycodone Hcl/Acetaminophen (PERCOCET 5-325 MG TABLET) 1 Each Tablet, 1 EACH PO Q4H PRN for PAIN, #12 TAB 0 Refills Prov:PILLO STOLL MD 04/25/18 Sulfamethoxazole/Trimet 800-160 Mg Tab (BACTRIM DS TABLET) 1 Each Tablet, 1 TAB PO Q12H, #20 TAB 0 Refills Prov:PILLO STOLL MD 04/25/18 Reported Medications Multivits,Th W-Fe,Other Min (THERA-M) 1 Each Tablet, 1 EACH PO QDAY 03/31/18 Albuterol Sulfate 90 Mcg/Act (PROAIR HFA 90 MCG/ACT) 8.5 Gm Hfa.aer.ad, 2 PUFF IH Q4H PRN for SHORTNESS OF BREATH, INHALER 03/30/18 Duloxetine Hcl (CYMBALTA) 30 Mg Capsule.dr, 60 MG PO QDAY, #5 CAP 03/30/18 Hx Smoking: Yes Smoking Status: Current: Every Day Smoker, Heavy Tobacco Smoker Hx Substance Use Disorder: No Hx Alcohol Use: Yes Constitutional Vital Sign - Last 24 Hours 08/10/18 08/10/18 08/10/18 08/10/18 10:31 10:42 10:42 10:44 Temp 97.8 Pulse 95 77 69 Resp 26 16 16 B/P (MAP) 123/80 Pulse Ox 95 97 O2 Delivery Room Air Room Air Physical Exam General Appearance: The patient is alert, has no immediate need for airway protection and no signs of toxicity. NAD Eyes: Pupils equal and round no pallor or injection. ENT, Mouth: Mucous membranes are moist. Respiratory: There are no retractions, + scant wheezing b/l Cardiovascular: Regular rate and rhythm. Gastrointestinal: Abdomen is soft and non tender, no masses, bowel sounds normal. Neurological: NAD Skin: Warm and dry, no rashes. Musculoskeletal: Neck is supple non tender. Extremities are nontender, nonswollen and have full range of motion. DIFFERENTIAL DIAGNOSIS: After history and physical exam differential diagnosis was considered for shortness of breath including but not limited to pulmonary infectious process, COPD, asthma, pulmonary embolus and congestive heart failure. Medical Decision Making ED Course/Re-evaluation ED Course Patient is a 33-year-old male here with a suspected asthma exacerbation after brushing dust at work. Patient has a known history of asthma but ran out of his inhaler. Patient received a DuoNeb at time of initial ED evaluation with significant improvement of symptoms. Chest x-ray showed no acute infectious etiology. Patient was given albuterol inhaler for outpatient use and advised to follow-up with his PCP in the next week. Patient was initially tachypneic but responded well to DuoNeb prior to discharge. Decision to Disposition Date: Aug 10, 2018 Decision to Disposition Time: 11:19 Depart Departure Latest Vital Signs Vital Signs Date Time Temp Pulse Resp B/P (MAP) Pulse Ox O2 Delivery O2 Flow Rate FiO2 08/10/18 10:44 69 16 08/10/18 10:42 97 Room Air 08/10/18 10:31 97.8 123/80 Impression: Primary Impression: Asthma exacerbation Condition: Improved Disposition: HOME OR SELF-CARE Patient Instructions: Asthma (ED) Additional Instructions: You may use your inhaler 2 puffs every 4-6 hours as needed for shortness breath and wheezing. Please follow-up with your family doctor in the next week. Please return promptly if you develop cough, fevers, difficulty breathing. ALEKS BOX DO Aug 10, 2018 10:43
[2018-08-10] MEDS ORDERED: ALBUTEROL 8 GM INHALER INH ONE (10:50)
[2018-08-10] MEDS ORDERED: ALBUTEROL/IPRATROPIUM 3 ML NEB NEB ONE (10:50)
[2018-08-10 11:00] VITALS: BP 100/79
--- NOTE | 2018-08-10 11:26 | RADIOLOGY IMAGING REPORT ---
FACILITY: [facility] PATIENT NAME: Jackson Houston : 1985 MR: [id number] V: [id number] EXAM DATE: ORDERING PHYSICIAN: ALEKS BOX TECHNOLOGIST: [place] [facility] [place] : 1985 Visit/Account:[id number] Date of Sevice: 08/10/2018 Exam type: CHEST PA AND LAT History: SOB Comparison: None. Findings: The lungs are free of acute effusions, infiltrates or edema. There is no evidence of a pneumothorax or pneumomediastinum. The cardiac silhouette is normal in size. IMPRESSION: 1. No acute cardiopulmonary process is seen Report Dictated By: Bailey Tucker MD at 08/10/2018 11:19 AM Report E-Signed By: Bailey Tucker MD at 08/10/2018 11:20 AM WSN:[id number]
== END 2018-08-10 11:32 | disposition home or self-care (01) ==
LOC: ER 10:44
DX: J45.901 Unspecified asthma with (acute) exacerbation (principal)
CPT/HCPCS: 71046; 94640; 99283; J3535; J7620

== ENCOUNTER 2018-12-16 23:28 | Emergency (ER) | payer MEDICAID ==
[2018-12-17 00:12] VITALS: BP 116/85
--- NOTE | 2018-12-17 00:17 | ER Report ---
History and Physical Time Seen By MD: 00:02 Hx. of Stated Complaint: PATIENT IS A [employer], HE CUT HIS LEFT ANTERIOR FOREARM WITH KNIFE. HPI/ROS CHIEF COMPLAINT: laceration HISTORY OF PRESENT ILLNESS: This is a 33 year old male. 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 Bleeding controlled. Normal sensation. No weakness. Up to date on tetanus. Allergies: Coded Allergies: No Known Drug Allergies (Unverified , 12/17/18) Home Meds Active Scripts Cephalexin Monohydrate (CEPHALEXIN) 500 Mg Cap, 500 MG PO Q6H, #20 CAP 0 Refills Prov:PILLO STOLL MD 12/17/18 Reported Medications Multivits, W-Fe,Other Min (THERA-M) 1 Each Tablet, 1 EACH PO QDAY 03/31/18 Albuterol Sulfate 90 Mcg/Act (PROAIR HFA 90 MCG/ACT) 8.5 Gm Hfa.aer.ad, 2 PUFF IH Q4H PRN for SHORTNESS OF BREATH, INHALER 03/30/18 Duloxetine Hcl (CYMBALTA) 30 Mg Capsule.dr, 60 MG PO QDAY, #5 CAP 03/30/18 Discontinued Scripts Oxycodone Hcl/Acetaminophen (PERCOCET 5-325 MG TABLET) 1 Each Tablet, 1 EACH PO Q4H PRN for PAIN, #12 TAB 0 Refills Prov:PILLO STOLL MD 04/25/18 Sulfamethoxazole/Trimet 800-160 Mg Tab (BACTRIM DS TABLET) 1 Each Tablet, 1 TAB PO Q12H, #20 TAB 0 Refills Prov:PILLO STOLL MD 04/25/18 Reviewed Nurses Notes: Yes Hx Smoking: Yes Smoking Status: Current: Every Day Smoker, Heavy Tobacco Smoker Hx Substance Use Disorder: No Hx Alcohol Use: Yes Constitutional Vital Sign - Last 24 Hours 12/17/18 00:12 Temp 98.3 Pulse 80 Resp 16 B/P (MAP) 116/85 Pulse Ox 90 O2 Delivery Room Air Physical Exam General: Alert, no distress. Skin: Laceration, ventral forearm, left side. 14cm long Musculoskeletal: Normal motor function. Neuro: Normal sensation. Cardiovascular: Normal cap refill. Medical Decision Making ED Course/Re-evaluation ED Course Procedure: Laceration Repair Verbal consent from patient after discussing repair options, risks and benefits. Wound cleaned extensively with Shur-Clens and saline. Anesthesia: Local 1% lidocaine with epinephrine and 0.5% bupivacaine. Location: Left ventral forearm. Length: 14 cm, 9 cm needing repair. Character: Into the subcutaneous tissue. There were no deep structures involved. No tendon injury was identified. Wound repair: 2 running 5-0 Prolene stitches. The wound repair was simple and performed by myself. Wound care instructions discussed. Sutures need to be removed in 7 days. Cephalexin 500mg four times a day for 5 days. Decision to Disposition Date: Dec 17, 2018 Decision to Disposition Time: 00:48 Depart Departure Latest Vital Signs Vital Signs Date Time Temp Pulse Resp B/P (MAP) Pulse Ox O2 Delivery O2 Flow Rate FiO2 12/17/18 00:12 98.3 80 16 116/85 90 Room Air Impression: Primary Impression: Arm laceration Condition: Improved Disposition: HOME OR SELF-CARE New Scripts Cephalexin Monohydrate (CEPHALEXIN) 500 Mg Cap 500 MG PO Q6H, #20 CAP 0 Refills Prov: PILLO STOLL MD 12/17/18 Patient Instructions: Laceration (ED) Additional Instructions: Wound Care: Wash the wound once a day with soap and water. Dry the wound and apply a small amount of antibiotic ointment with a clean dressing. If the dressing becomes wet or dirty, repeat cleaning and dressing as above. No soaking the wound; no swimming. Stitches need to be removed in 5-7 days. Pain Control: Use Tylenol or ibuprofen for pain. Using and ice pack can help reduce swelling. Antibiotic: Cephalexin 500mg 4 times a day for 5 days. Problem Qualifiers Primary Impression: Arm laceration Encounter type: initial encounter Laterality: left Qualified Codes: S41.112A - Laceration without foreign body of left upper arm, initial encounter PILLO STOLL MD Dec 17, 2018 00:17
[2018-12-17] MEDS ORDERED: CEPH500C24 PO (00:49)
[2018-12-17] MEDS ORDERED: CEPHALEXIN 500 MG CAP TH 2 CAP/BOTTLE PO ONE (00:50)
== END 2018-12-17 01:07 | disposition home or self-care (01) ==
LOC: ER 12-17 00:18
DX: S51.812A Laceration without foreign body of left forearm, initial encounter (principal)
CPT/HCPCS: 99283

== ENCOUNTER 2018-12-24 13:59 | Emergency (ER) | payer MEDICAID ==
[2018-12-24 14:05] VITALS: BP 118/95
[2018-12-24] MEDS ORDERED: ALB18R INH (14:20)
--- NOTE | 2018-12-24 14:22 | ER Report ---
History and Physical Time Seen By MD: 14:07 Hx. of Stated Complaint: SUTURE REMOVAL LEFT FOREARM. PLACED 8 DAYS AGO HPI/ROS CHIEF COMPLAINT: Suture removal HISTORY OF PRESENT ILLNESS: This is a 33-year-old male presents emergency department for suture removal. Patient states that 8 days he was seen and e valuated here in emergency department for laceration to his left upper forearm, had running sutures placed. Patient states he never did take antibiotics however the wound does appear to be intact, no signs of infection. No fevers or chills. Allergies: Coded Allergies: No Known Drug Allergies (Unverified , 12/24/18) Home Meds Active Scripts Albuterol Sulfate (VENTOLIN HFA) 18 Gm Inh, 1-2 PUFF INH 3-4XD, #1 INH Prov:BERENICE DUMONT [employer]-BC 12/24/18 Reported Medications Multivits,Th W-Fe,Other Min (THERA-M) 1 Each Tablet, 1 EACH PO QDAY 03/31/18 Albuterol Sulfate 90 Mcg/Act (PROAIR HFA 90 MCG/ACT) 8.5 Gm Hfa.aer.ad, 2 PUFF IH Q4H PRN for SHORTNESS OF BREATH, INHALER 03/30/18 Duloxetine Hcl (CYMBALTA) 30 Mg Capsule.dr, 60 MG PO QDAY, #5 CAP 03/30/18 Discontinued Scripts Cephalexin Monohydrate (CEPHALEXIN) 500 Mg Cap, 500 MG PO Q6H, #20 CAP 0 Refills Prov:PILLO STOLL MD 12/17/18 Oxycodone Hcl/Acetaminophen (PERCOCET 5-325 MG TABLET) 1 Each Tablet, 1 EACH PO Q4H PRN for PAIN, #12 TAB 0 Refills Prov:PILLO STOLL MD 04/25/18 Sulfamethoxazole/Trimet 800-160 Mg Tab (BACTRIM DS TABLET) 1 Each Tablet, 1 TAB PO Q12H, #20 TAB 0 Refills Prov:PILLO STOLL MD 04/25/18 Past Medical/Surgical History The patient has a past medical and surgical history of asthma, anxiety. Reviewed Nurses Notes: Yes Hx Smoking: Yes Smoking Status: Current: Every Day Smoker, Heavy Tobacco Smoker Hx Substance Use Disorder: No Hx Alcohol Use: Yes Constitutional Vital Sign - Last 24 Hours 12/24/18 14:05 Temp 98.7 Pulse 75 Resp 14 B/P (MAP) 118/95 Pulse Ox 97 O2 Delivery Room Air Physical Exam General appearance: Alert no distress. Respiratory: Chest is non tender, lungs are clear to auscultation. Cardiac: Regular rate and rhythm. Integumentary: To extended running sutures were removed from the patient's left forearm, no bleeding or dehiscence. No. When drainage, mild redness to where the sutures were placed otherwise unremarkable. DIFFERENTIAL DIAGNOSIS: After history and physical exam differential diagnosis was considered for suture removal. Medical Decision Making ED Course/Re-evaluation ED Course The patient was admitted to a room. A history and physical obtained. Differential diagnoses were considered. Running sutures were removed, Steri- Strips were placed over the sutures to insure adequate healing, patient was encouraged to monitor closely for signs of infection. Patient had no other questions or concerns at this time discharged home. Decision to Disposition Date: Dec 24, 2018 Decision to Disposition Time: 14:19 Depart Departure Latest Vital Signs Vital Signs Date Time Temp Pulse Resp B/P (MAP) Pulse Ox O2 Delivery O2 Flow Rate FiO2 12/24/18 14:05 98.7 75 14 118/95 97 Room Air Impression: Primary Impression: Visit for suture removal Condition: Improved Disposition: HOME OR SELF-CARE New Scripts Albuterol Sulfate (VENTOLIN HFA) 18 Gm Inh 1-2 PUFF INH 3-4XD, #1 INH Prov: BERENICE DUMONT 12/24/18 Patient Instructions: Acute Wound Care (ED), Steristrips (ED) Additional Instructions: Continue to monitor the wound closely for signs of infection such as redness, pus or any other concerns. Start taking the antibiotic should these arise. Keep the wound covered especially when working, you can apply a thin layer of antibiotic ointment to the wound. Change the dressing regularly. Please establish with a primary care provider for asthma. Return to ER for any concerns or worsening symptoms. BERENICE DUMONT Dec 24, 2018 14:22
== END 2018-12-24 14:24 | disposition home or self-care (01) ==
LOC: ER 14:03
DX: S51.812D Laceration without foreign body of left forearm, subsequent encounter (principal)
CPT/HCPCS: 99281